=== PATIENT | female | born 1970 | race Caucasian/White ===

== ENCOUNTER 2025-03-06 14:34 | Outpatient (AMB) | payer OTHER, SELFPAY ==
[2025-03-06 14:35] VITALS: BP 106/68; PULSE 65; TEMP 36.7; O2SAT 98; BMI 29.6
--- NOTE | 2025-03-06 14:35 | MHC.OFFWIV ---
Intake Vital Signs 03/06/25 14:35 Height 5 ft 10 in Weight 206 lb BMI 29.6 BP 106/68 Blood Pressure Location Lt brachial Position Sitting Pulse 65 Pulse Source Pulse Oximeter Temp 98.0 F Temp Source Oral Pulse Oximetry (%) 98 Oxygen Delivery Method Room Air Intake Visit Reasons: EP Dizziness, fatigue Intake Note: pt presents with dizziness, lightheaded and fatigue here and there for a few days Allergies No Known Allergies (No Known Allergies*) Allergy (Verified 03/06/25 14:40) Do you need a note to return to daycare/school/sports/work: No HPI EP Dizziness, fatigue HPI Details This is a 54-year-old female patient who presents to the walk-in clinic with reports of recent feelings over the past several days of intermittent dizziness, fatigue, and generally just feeling ?off ?. Denies any recent illnesses, new medications, or known exposure to sick contacts. Denies any recent fevers or chills. Denies any dizziness with change in position. Has been eating and drinking well. Notes intermittent palpitations. Denies any chest pain or shortness of breath. Does not have a PCP at this time, however is hoping to get established with one through [facility]. Review of Systems Const All systems reviewed & are unremarkable except as noted in HPI and below Physical Exam Vital Signs: Last Vital Signs Temp 98.0 F 03/06/25 14:35 Pulse 65 03/06/25 14:35 BP 106/68 03/06/25 14:35 Pulse Ox 98 03/06/25 14:35 Oxygen Delivery Method Room Air 03/06/25 14:35 BMI result Body Mass Index 29.6 Const General: cooperative, healthy appearing, comfortable and no acute distress Nutritional Appearance: average body habitus Orientation/consciousness: patient oriented x3 Limitations: no limitations HEENT Head: Yes normal to inspection Ears: hearing grossly normal bilaterally Neck Neck: Yes no lymphadenopathy and Yes no JVD Thyroid: Thyroid normal Resp Effort & Inspection: normal respiratory effort Auscultation: clear to auscultation bilaterally Cardio Palpation: normal PMI Rate: regular rate Rhythm: regular rhythm Heart sounds: S1 normal heart sound present and S2 normal heart sound present Skin General skin exam: no rashes or lesions noted Neuro General: patient oriented x3 and no focal motor deficits Extrem General: Yes capillary refill normal and Yes no clubbing, cyanosis or edema Psych Appearance: grossly normal Mental Status: mental status grossly normal Speech and movement: Normal speech and movement present Assessment & Plan Assessment & Plan (1) Palpitations: Code(s): R00.2 - Palpitations Plan: Patient is having intermittent palpitations. She is unsure if this is related to anxiety, as this has happened in the past and been attributed to such. EKG in the office today showed: sinus cristy, 54. Declines any viral testing today. Assessment is unremarkable. VSS. Patient appears well. Patient has not had a PCP or had routine labs done in around 5 years. She was provided with the contact information today to get established with a PCP within [facility] if she wishes to do so. She is going to call today or early next week. In the meantime, we discussed that should her symptoms worsen, new symptoms develop, palpitations persist, or certainly if any chest pain develops, she should go to the emergency department for further evaluation. Patient verbalizes understanding and agrees to plan. Orders: Orders AMB EKG-In Office Today R00.2 - Palpitations Coding Level of Care Code Est Pt Level 4 (27279) Diagnoses Palpitations R00.2
== END 2025-03-06 16:13 | disposition home or self-care (01) ==
PROVIDERS: Visit Provider Nurse Practitioner Family
DX: R00.2 Palpitations (principal)

== ENCOUNTER → 2025-03-06 14:34 | Outpatient (BNVA) | payer OTHER, SELFPAY | PROVIDERS: Visit Provider Nurse Practitioner Family | DX: R00.2 Palpitations (principal); R42 Dizziness and giddiness; R53.83 Other fatigue | CPT/HCPCS: 99212 ==